=== PATIENT | male | born 1965 | race Caucasian/White ===

== ENCOUNTER 2018-10-27 16:07 | Emergency (ER) | payer OTHER ==
[~2018-10-27] VITALS: Ht 152.4 cm; Wt 98.4 kg
[2018-10-27] MEDS ORDERED: FORTAMET1000 MG (16:16)
[2018-10-27] MEDS ORDERED: LANTUS SOL100 UNIT/1 (16:17)
[2018-10-27] MEDS ORDERED: PRINIVIL20 MG (16:18)
[2018-10-27] MEDS ORDERED: ZESTRIL5 MG (16:18)
[2018-10-27] MEDS ORDERED: STERILE SALINE126 ML (16:18)
[2018-10-27] MEDS ORDERED: NEURONTIN300 MG (16:18)
[2018-10-27] MEDS ORDERED: FAMCICLOVIR500 MG (16:19)
[2018-10-27] MEDS ORDERED: ASPIR 8181 MG (16:20)
[2018-10-27] MEDS ORDERED: CHILDREN'S ASPI81 MG (16:20)
== END 2018-10-27 22:55 | disposition home or self-care (01) ==
LOC: ER 16:07
DX: S61.255A Open bite of left ring finger without damage to nail, initial encounter (principal); W54.0XXA Bitten by dog, initial encounter; Y93.89 Activity, other specified; Y92.89 Other specified places as the place of occurrence of the external cause; Y99.8 Other external cause status

== ENCOUNTER 2019-10-15 17:02 | Emergency (ER) | payer OTHER ==
[~2019-10-15] VITALS: Ht 177.8 cm; Wt 97.5 kg
[~2019-10-15 17:02] MED LIST: ASPIR 8181 MG; CHILDREN'S ASPI81 MG; FAMCICLOVIR500 MG; FORTAMET1000 MG; LANTUS SOL100 UNIT/1; NEURONTIN300 MG; PRINIVIL20 MG; STERILE SALINE126 ML; ZESTRIL5 MG
[2019-10-15] MEDS ORDERED: LEVOTHYROXINE25 MCG (17:23)
[2019-10-15] MEDS ORDERED: GLIMEPIRIDE4 MG (17:24)
[2019-10-15] MEDS ORDERED: COZAAR25 MG (17:24)
[2019-10-15] MEDS ORDERED: DIURETICO (17:25)
== END 2019-10-15 22:00 | disposition home or self-care (01) ==
LOC: ER 17:02 → EDBD 17:52 → ER 22:00
DX: G51.0 Bell's palsy (principal)

== ENCOUNTER 2024-12-25 09:46 | Outpatient (CLI) | payer OTHER ==
[~2024-12-25 09:46] MED LIST changes: +COZAAR25 MG; +DIURETICO; +GLIMEPIRIDE4 MG; +LEVOTHYROXINE25 MCG
== END 2024-12-25 09:53 | disposition home or self-care (01) ==
LOC: SONOGRAMA 09:46
DX: E04.1 Nontoxic single thyroid nodule (principal)